=== PATIENT | male | born 1950 | race Two or more races ===

== ENCOUNTER 2019-11-07 11:58 | Outpatient (CLI) | payer OTHER | END 2019-11-07 12:13 | disposition home or self-care (01) | LOC: SONOGRAMA 11:58 | DX: E04.1 Nontoxic single thyroid nodule (principal) ==

== ENCOUNTER 2019-11-07 13:02 | Outpatient (CLI) | payer OTHER | END 2019-11-07 13:11 | disposition home or self-care (01) | LOC: LAB 13:02 | DX: E03.8 Other specified hypothyroidism (principal) ==

== ENCOUNTER 2020-10-07 11:25 | Outpatient (CLI) | payer OTHER | END 2020-10-07 11:29 | disposition home or self-care (01) | LOC: PPH VACUNA 11:25 | PROVIDERS: ATTEND Emergency Medicine Pediatric Emergency Medicine | DX: Z23 Encounter for immunization (principal) ==

== ENCOUNTER 2020-10-28 09:34 | Outpatient (CLI) | payer OTHER | END 2020-10-28 09:36 | disposition home or self-care (01) | LOC: PPH VACUNA 09:34 | DX: Z23 Encounter for immunization (principal) ==

== ENCOUNTER 2021-05-09 09:31 | Outpatient (CLI) | payer OTHER | END 2021-05-09 09:36 | disposition home or self-care (01) | LOC: SONOGRAMA 09:31 → MAMO-SONO 10:00 | PROVIDERS: ATTEND Pediatrics Neonatal-Perinatal Medicine | DX: E04.1 Nontoxic single thyroid nodule (principal); I11.9 Hypertensive heart disease without heart failure; E78.01 Familial hypercholesterolemia; Z68.27 Body mass index [BMI] 27.0-27.9, adult ==

== ENCOUNTER 2021-05-09 10:10 | Outpatient (CLI) | payer OTHER | END 2021-05-09 16:14 | disposition home or self-care (01) | LOC: LAB 10:10 | PROVIDERS: ATTEND Pediatrics Neonatal-Perinatal Medicine | DX: E03.8 Other specified hypothyroidism (principal) ==

== ENCOUNTER 2022-04-29 08:03 | Outpatient (CLI) | payer OTHER | END 2022-04-29 08:04 | disposition home or self-care (01) | LOC: LAB 08:03 | PROVIDERS: ATTEND Internal Medicine Cardiovascular Disease | DX: E78.2 Mixed hyperlipidemia (principal); D64.9 Anemia, unspecified; I11.9 Hypertensive heart disease without heart failure ==

== ENCOUNTER 2022-04-29 08:33 | Outpatient (CLI) | payer OTHER | END 2022-04-29 08:42 | disposition home or self-care (01) | LOC: RAD 08:33 | PROVIDERS: ATTEND Internal Medicine | DX: N18.2 Chronic kidney disease, stage 2 (mild) (principal); M54.17 Radiculopathy, lumbosacral region; M16.0 Bilateral primary osteoarthritis of hip ==

== ENCOUNTER 2022-06-01 10:57 | Outpatient (CLI) | payer OTHER | END 2022-06-01 11:03 | disposition home or self-care (01) | LOC: LAB 10:57 | PROVIDERS: ATTEND Internal Medicine | DX: N18.2 Chronic kidney disease, stage 2 (mild) (principal) ==

== ENCOUNTER 2022-10-08 09:02 | Outpatient (CLI) | payer OTHER | END 2022-10-08 09:03 | disposition home or self-care (01) | LOC: LAB 09:02 | PROVIDERS: ATTEND Urology | DX: I10 Essential (primary) hypertension (principal); E11.9 Type 2 diabetes mellitus without complications; E78.00 Pure hypercholesterolemia, unspecified; N39.0 Urinary tract infection, site not specified; N40.0 Benign prostatic hyperplasia without lower urinary tract symptoms ==

== ENCOUNTER 2023-03-23 08:38 | Outpatient (CLI) | payer OTHER | END 2023-03-23 08:42 | disposition home or self-care (01) | LOC: LAB 08:38 | PROVIDERS: ATTEND Pediatrics Neonatal-Perinatal Medicine | DX: N28.9 Disorder of kidney and ureter, unspecified (principal) ==

== ENCOUNTER → 2023-10-18 10:28 | Outpatient (CLI) | payer OTHER ==
[2023-10-18 12:04] LABS: HEMATOCRIT 39.5 % (39.0-48.0); HEMOGLOBIN 13.6 g/dL (13-16.00); MEAN CORPUSCULAR HEMOGLOBIN 29.5 pg (27.00-32.0); MEAN CORPUSCULAR HGB CONC 34.3 g/dl (32.0-36.0); PLATELET COUNT 206 K/uL (150-450); RED BLOOD COUNT 4.59 M/uL (4.00-6.00); RED CELL DISTRIBUTION WIDTH 13.8 % (11.5-14.5)
[2023-10-18 12:14] LABS: URINE APPEARANCE Clear; URINE BILIRRUBIN Negative (NEGATIVE); URINE BLOOD Negative; URINE COLOR Yellow; URINE GLUCOSE Negative (NEGATIVE); URINE LEUKOCYTE Negative; URINE NITRATE Negative; URINE PROTEIN Negative (NEGATIVE); URINE UROBILINOGEN 0.2 E.U./dl
[2023-10-18 12:18] LABS: URINE BACTERIA 103.2 uL (0.0-1933); URINE RBC 15.3 uL (0.0-20.8)
[2023-10-18 12:34] LABS: ALBUMIN 3.5 gm/dL (3.4-5.0); CALCIUM 9.1 mg/dL (8.5-10.1); CHOL HDL RATIO 2.8 (0-5.0); CREATININE SERUM 1.16 mg/dL (0.70-1.30); GFR 61.89; PHOSPHOROUS 3.5 mg/dL (2.5-4.9); POTASSIUM 4.78 mEq/L (3.5-5.1); URIC ACID 7.4 mg/dL (3.5-8.5)
[2023-10-18 12:47] LABS: URINE EPITHELIAL CELLS 0.6 uL (0.0-38.8); URINE WBC 0.7 uL (0.0-23.2)
== END | disposition home or self-care (01) ==
LOC: LAB 10:28
PROVIDERS: ATTEND Internal Medicine Nephrology
DX: N18.2 Chronic kidney disease, stage 2 (mild) (principal); E11.22 Type 2 diabetes mellitus with diabetic chronic kidney disease; I10 Essential (primary) hypertension; R80.9 Proteinuria, unspecified

== ENCOUNTER → 2023-10-21 12:05 | Outpatient (CLI) | payer OTHER ==
[2023-10-21 14:21] LABS: URINE PROT QUANT 24HR < 5.00 MG/DL
[2023-10-21 14:24] LABS: URINE PROT QUANT 24 HR 138.75 MG/24HR (42-225)
[2023-10-21 14:25] LABS: CREATINE CLEARANCE 73.1 ML/MIN (97-137); CREATININE SERUM 1.11 mg/dL (0.8-1.3)
== END | disposition home or self-care (01) ==
LOC: LAB 12:05
PROVIDERS: ATTEND Internal Medicine Nephrology
DX: N18.2 Chronic kidney disease, stage 2 (mild) (principal); E11.22 Type 2 diabetes mellitus with diabetic chronic kidney disease; I10 Essential (primary) hypertension

== ENCOUNTER 2023-11-08 10:05 | Outpatient (CLI) | payer OTHER ==
[2023-11-08 10:58] LABS: HEMATOCRIT 41.3 % (39.0-48.0); MEAN CELL VOLUME 87.7 fL (80.0-100.00); MEAN CORPUSCULAR HEMOGLOBIN 29.8 pg (27.00-32.0); PLATELET COUNT 215 K/uL (150-450); RED BLOOD COUNT 4.71 M/uL (4.00-6.00); RED CELL DISTRIBUTION WIDTH 13.6 % (11.5-14.5)
[2023-11-08 13:09] LABS: ALBUMIN 3.5 gm/dL (3.4-5.0); BILIRUBIN TOTAL 0.59 mg/dL (0.3-1.2); CALCIUM 9.4 mg/dL (8.5-10.1); CHOL HDL RATIO 2.6 (0-5.0); CREATININE SERUM 1.13 mg/dL (0.70-1.30); GFR 63.79; GLOBULINA 3.9 G/DL (2.4-3.5); POTASSIUM 4.77 mEq/L (3.5-5.1); PROSTATIC SPECIFIC ANTIGEN 1.74 NG/ML (0.010-4.00); TOTAL PROTEIN 7.4 gm/dL (6.4-8.2)
[2023-11-08 13:14] LABS: PH,URINE 7.5 (5.0-8.0); URINE APPEARANCE Clear; URINE BACTERIA 7.5 uL (0.0-1933); URINE BILIRRUBIN Negative (NEGATIVE); URINE BLOOD Negative; URINE COLOR Yellow; URINE GLUCOSE Negative (NEGATIVE); URINE LEUKOCYTE Negative; URINE NITRATE Negative; URINE PROTEIN Negative (NEGATIVE); URINE UROBILINOGEN 0.2 E.U./dl
[2023-11-08 13:21] LABS: URINE WBC 0.7 uL (0.0-23.2)
== END 2023-11-08 10:13 | disposition home or self-care (01) ==
LOC: LAB 10:05
PROVIDERS: ATTEND Urology
DX: N40.1 Benign prostatic hyperplasia with lower urinary tract symptoms (principal); I10 Essential (primary) hypertension; E11.9 Type 2 diabetes mellitus without complications; E78.5 Hyperlipidemia, unspecified; N39.0 Urinary tract infection, site not specified

== ENCOUNTER → 2024-04-14 10:30 | Outpatient (CLI) | payer OTHER ==
[2024-04-14 11:20] LABS: HEMATOCRIT 40.7 % (39.0-48.0); HEMOGLOBIN 13.7 g/dL (13-16.00); MEAN CELL VOLUME 87.9 fL (80.0-100.00); MEAN CORPUSCULAR HEMOGLOBIN 29.7 pg (27.00-32.0); MEAN CORPUSCULAR HGB CONC 33.8 g/dl (32.0-36.0); PLATELET COUNT 206 K/uL (150-450); RED BLOOD COUNT 4.64 M/uL (4.00-6.00); RED CELL DISTRIBUTION WIDTH 13.3 % (11.5-14.5)
[2024-04-14 11:21] LABS: PH,URINE 7.5 (5.0-8.0); URINE APPEARANCE Clear; URINE BILIRRUBIN Negative (NEGATIVE); URINE BLOOD Negative; URINE COLOR Yellow; URINE GLUCOSE Negative (NEGATIVE); URINE LEUKOCYTE Negative; URINE NITRATE Negative; URINE PROTEIN Negative (NEGATIVE); URINE UROBILINOGEN 0.2 E.U./dl
[2024-04-14 11:26] LABS: URINE RBC 6.1 uL (0.0-20.8)
[2024-04-14 11:33] LABS: URINE BACTERIA 3.7 uL (0.0-1933); URINE EPITHELIAL CELLS 0.1 uL (0.0-38.8); URINE WBC 1.5 uL (0.0-23.2)
[2024-04-14 12:04] LABS: ALBUMIN 3.4 gm/dL (3.4-5.0); CALCIUM 9.2 mg/dL (8.5-10.1); CREATININE SERUM 1.1 mg/dL (0.70-1.30); GFR 65.8; PHOSPHOROUS 3.1 mg/dL (2.5-4.9); POTASSIUM 4.42 mEq/L (3.5-5.1); URIC ACID 7.7 mg/dL (3.5-8.5)
== END | disposition home or self-care (01) ==
LOC: LAB 10:30
PROVIDERS: ATTEND Internal Medicine Nephrology
DX: N18.30 Chronic kidney disease, stage 3 unspecified (principal); I10 Essential (primary) hypertension; R80.9 Proteinuria, unspecified

== ENCOUNTER 2024-10-21 10:03 | Outpatient (CLI) | payer OTHER ==
[2024-10-21 11:18] LABS: PH,URINE 6.5 (5.0-8.0); URINE APPEARANCE Clear; URINE BILIRRUBIN Negative (NEGATIVE); URINE BLOOD Negative; URINE COLOR Yellow; URINE GLUCOSE Negative (NEGATIVE); URINE KETONE Negative (NEGATIVE); URINE LEUKOCYTE Negative; URINE NITRATE Negative; URINE PROTEIN Negative (NEGATIVE); URINE UROBILINOGEN 0.2 E.U./dl
[2024-10-21 11:19] LABS: URINE BACTERIA 75.8 uL (0.0-1933); URINE RBC 9.4 uL (0.0-20.8)
[2024-10-21 11:25] LABS: URINE EPITHELIAL CELLS 0.7 uL (0.0-38.8)
[2024-10-21 11:45] LABS: ALBUMIN 3.3 gm/dL (3.4-5.0); CALCIUM 8.9 mg/dL (8.5-10.1); CREATININE SERUM 1.05 mg/dL (0.70-1.30); GFR 69.23; PHOSPHOROUS 3.5 mg/dL (2.5-4.9); POTASSIUM 4.64 mEq/L (3.5-5.1); URIC ACID 6.7 mg/dL (3.5-8.5)
[2024-10-21 11:54] LABS: HEMATOCRIT 40.6 % (39.0-48.0); HEMOGLOBIN 13.6 g/dL (13-16.00); MEAN CELL VOLUME 87.8 fL (80.0-100.00); MEAN CORPUSCULAR HEMOGLOBIN 29.3 pg (27.00-32.0); MEAN CORPUSCULAR HGB CONC 33.4 g/dl (32.0-36.0); PLATELET COUNT 213 K/uL (150-450); RED BLOOD COUNT 4.63 M/uL (4.00-6.00); RED CELL DISTRIBUTION WIDTH 13.5 % (11.5-14.5)
== END 2024-10-21 10:06 | disposition home or self-care (01) ==
LOC: LAB 10:03
PROVIDERS: ATTEND Internal Medicine Nephrology
DX: N18.30 Chronic kidney disease, stage 3 unspecified (principal); I10 Essential (primary) hypertension; R80.9 Proteinuria, unspecified

== ENCOUNTER → 2025-03-03 09:11 | Outpatient (CLI) | payer OTHER ==
[2025-03-03 10:24] LABS: BASO % 0.9 % (0.1-1.2); EOS % 6.9 % (0.7-7.0); LYMPH # 2.84 (1.18-3.74); LYMPH % 32.5 % (19.3-53.1); MEAN CORPUSCULAR HEMOGLOBIN 29.2 pg (25.6-32.2); MONO # 0.58 (0.24-0.82); MONO % 6.6 % (4.7-12.5); NEUT % 52.8 % (34.0-71.1); PLATELET COUNT 231 K/uL (163-369); RED CELL DISTRIBUTION WIDTH 13.4 % (11.6-14.4)
[2025-03-03 10:53] LABS: URINE APPEARANCE Clear; URINE BILIRRUBIN Negative (NEGATIVE); URINE BLOOD Negative; URINE COLOR Yellow; URINE GLUCOSE Negative (NEGATIVE); URINE KETONE Negative (NEGATIVE); URINE LEUKOCYTE Negative; URINE NITRATE Negative; URINE PROTEIN Negative (NEGATIVE); URINE UROBILINOGEN 0.2 E.U./dl
[2025-03-03 10:54] LABS: URINE BACTERIA 8.5 uL (0.0-1933); URINE RBC 4.8 uL (0.0-20.8); URINE WBC 2.6 uL (0.0-23.2)
[2025-03-03 10:57] LABS: ALBUMIN 3.5 gm/dL (3.4-5.0); BILIRUBIN TOTAL 0.57 mg/dL (0.3-1.2); CALCIUM 8.9 mg/dL (8.5-10.1); CHOL HDL RATIO 2.7 (0-5.0); CREATININE SERUM 1.16 mg/dL (0.70-1.30); GFR 61.71; POTASSIUM 4.42 mEq/L (3.5-5.1); PROSTATIC SPECIFIC ANTIGEN 1.49 NG/ML (0.010-4.00); TOTAL PROTEIN 7.5 gm/dL (6.4-8.2); TSH 2.99 uIU/mL (0.358-3.74)
[2025-03-03 10:58] LABS: URINE EPITHELIAL CELLS 0.7 uL (0.0-38.8)
[2025-03-03 12:54] LABS: ob NEGATIVE (NEGATIVE)
== END | disposition home or self-care (01) ==
LOC: LAB 09:11
PROVIDERS: ATTEND Internal Medicine
DX: D64.9 Anemia, unspecified (principal); E11.9 Type 2 diabetes mellitus without complications; E78.2 Mixed hyperlipidemia; N39.0 Urinary tract infection, site not specified; E03.8 Other specified hypothyroidism; N18.31 Chronic kidney disease, stage 3a; Z12.11 Encounter for screening for malignant neoplasm of colon; E55.9 Vitamin D deficiency, unspecified; N40.0 Benign prostatic hyperplasia without lower urinary tract symptoms

== ENCOUNTER 2025-04-21 09:16 | Outpatient (CLI) | payer OTHER ==
[2025-04-21 10:08] LABS: BASO % 0.8 % (0.1-1.2); EOS # 0.77 (0.04-0.54); EOS % 9.0 % (0.7-7.0); LYMPH # 2.80 (1.18-3.74); LYMPH % 32.7 % (19.3-53.1); MEAN PLATELET VOLUME 11.70 fl (9.4-12.4); MONO # 0.60 (0.24-0.82); MONO % 7.0 % (4.7-12.5); NEUT # 4.31 (1.56-6.13); NEUT % 50.3 % (34.0-71.1); RED CELL DISTRIBUTION WIDTH 13.6 % (11.6-14.4); URINE APPEARANCE Clear; URINE BILIRRUBIN Negative (NEGATIVE); URINE BLOOD Negative; URINE COLOR Yellow; URINE GLUCOSE Negative (NEGATIVE); URINE KETONE Negative (NEGATIVE); URINE LEUKOCYTE Negative; URINE NITRATE Negative; URINE PROTEIN Negative (NEGATIVE); URINE UROBILINOGEN 0.2 E.U./dl
[2025-04-21 10:12] LABS: URINE EPITHELIAL CELLS 1.6 uL (0.0-38.8); URINE RBC 4.5 uL (0.0-20.8)
[2025-04-21 10:20] LABS: URINE BACTERIA 0 uL (0.0-1933); URINE CAST 0.00 uL (0.0-1.40); URINE WBC 1.3 uL (0.0-23.2)
[2025-04-21 10:36] LABS: CREATININE URINE RANDOM 93.2 MG/DL (30-125)
[2025-04-21 10:41] LABS: BUN CREA RATIO 14.0 (7.0-25.0); CREATININE SERUM 1.09 mg/dL (0.70-1.30); GFR 66.31; GLUCOSE FASTING 112.0 mg/dL (65-100); OSMOLALITY SERUM 288.0 MOSM/KG (275-295)
== END 2025-04-21 09:21 | disposition home or self-care (01) ==
LOC: LAB 09:16
DX: N18.2 Chronic kidney disease, stage 2 (mild) (principal); I10 Essential (primary) hypertension; R80.9 Proteinuria, unspecified

== ENCOUNTER 2025-05-12 10:20 | Outpatient (CLI) | payer OTHER ==
[2025-05-12 11:21] LABS: CHOL HDL RATIO 2.5 (0-5.0); HDL 45.0 mg/dl (40-60); LDL 49.0 mg/dl (0-130); VLDL 19.0 (0-39)
[2025-05-12 11:39] LABS: ALT/SGPT 32.0 U/L (12-78); AST/SGOT 21.0 U/L (15-37); BILIRUBIN TOTAL 0.58 mg/dL (0.3-1.2); BUN CREA RATIO 13.0 (7.0-25.0); CREATININE SERUM 1.09 mg/dL (0.70-1.30); GFR 66.31; GLOBULINA 3.7 G/DL (2.4-3.5); GLUCOSE FASTING 107.0 mg/dL (65-100)
[2025-05-12 11:53] LABS: OSMOLALITY SERUM 286.0 MOSM/KG (275-295)
== END 2025-05-12 10:22 | disposition home or self-care (01) ==
LOC: LAB 10:20
PROVIDERS: ATTEND Internal Medicine Cardiovascular Disease
DX: I11.9 Hypertensive heart disease without heart failure (principal); E78.2 Mixed hyperlipidemia